=== PATIENT | male | born 1975 ===

== ENCOUNTER 2025-05-17 07:04 | Day surgery (SDC) | payer BC ==
[2025-05-16 10:56] VITALS: BMI 30.9
[2025-05-17] MEDS ORDERED: PROPOFOL 40 ML ONE (07:53)
[2025-05-17] MEDS ORDERED: Lidocaine 1% PF 5 ML VIAL ONE (07:53)
[2025-05-17] MEDS ORDERED: Ondansetron PF 4 MG/2 ML Vial ONE (07:54)
[2025-05-17] MEDS ORDERED: Bacitracin 1 PK ONE (08:27)
[2025-05-17] MEDS ORDERED: Lidocaine 1% w/Epinephrine 1:200K 30 ML VIAL ONE (08:28)
[2025-05-17] MEDS ORDERED: Ferric Subsulfate 8 ML TOPICAL SOLN ONE (08:28)
[2025-05-17] MEDS ORDERED: AFRIN NASAL MIST 15 ML BOT ONE (08:48)
[2025-05-17] MEDS ORDERED: SUCCINYLCHOLINE/SOD CL,ISO/PF 200 MG/10 ML SYRINGE FS ONE (08:52)
[2025-05-17] MEDS ORDERED: Oxymetazoline HCl 0.05% (15 ML) ONE (09:15)
[2025-05-17] MEDS ORDERED: Hydrocodone-Acetamin 15 ML UDCUP ONE (11:07)
== END 2025-05-17 12:20 | disposition home or self-care (01) ==
LOC: CSHSDC 07:04
PROVIDERS: ATTEND Otolaryngology Plastic Surgery within the Head & Neck
DX: J34.2 Deviated nasal septum (principal); J32.8 Other chronic sinusitis; J34.3 Hypertrophy of nasal turbinates; J30.9 Allergic rhinitis, unspecified; E11.9 Type 2 diabetes mellitus without complications; K13.79 Other lesions of oral mucosa; G47.33 Obstructive sleep apnea (adult) (pediatric); E66.9 Obesity, unspecified; Z68.31 Body mass index [BMI] 31.0-31.9, adult; Z88.8 Allergy status to other drugs, medicaments and biological substances; Z79.84 Long term (current) use of oral hypoglycemic drugs
CPT/HCPCS: 93005; 93010; J1100; J2250; J2405; J2704; J3010